=== PATIENT | female | born 1970 | race African-American/Black ===

== ENCOUNTER 2020-06-29 07:51 | Day surgery (SDC) | payer SELFPAY ==
[2020-06-29] MEDS ORDERED: propofoL 200 MG/20 ML VIAL IV ONE ×3 (08:24→09:44)
[2020-06-29] MEDS ORDERED: FENTANYL CITR 100 MCG/2 ML ONE ×2 (08:24→09:44)
[2020-06-29] MEDS ORDERED: MIDAZOLAM HCL 2 MG/2 ML INJ ONE ×2 (08:24→09:44)
[2020-06-29] MEDS ORDERED: dexAMETHasone 10 MG/ML VIAL ONE (08:25)
[2020-06-29] MEDS ORDERED: ONDANSETRON 4 MG/2 ML VIAL ONE (08:25)
[2020-06-29] MEDS ORDERED: LIDOCAINE 2% MPF 5 ML VIAL ONE (08:25)
[2020-06-29] MEDS ORDERED: KETOROLAC 30 MG/ML INJ ONE ×2 (08:26→09:55)
[2020-06-29] MEDS ORDERED: Ringers Lactate 1,000 ML IV ONE (08:40)
[2020-06-29] MEDS ORDERED: CEFAZOLIN/SWI 1gm 1 GM/10 ML SYR ONE (08:40)
[2020-06-29] MEDS ORDERED: ACETAMINOPHEN 325 MG TABLET ONE (08:59)
[2020-06-29] MEDS: BUPIVACAINE 0.5% PF 10 ML VIAL ONE ×2 (09:21→09:29)
[2020-06-29] MEDS: LIDOCAINE 1% W/EPI 1:100,000 MDV 50 ML VIAL ONE ×2 (09:30→09:48)
[2020-06-29] MEDS ORDERED: Mastisol Adhesive Liq ONE (09:57)
[2020-06-29 10:02] VITALS: O2SAT 100
--- NOTE | 2020-06-29 10:42 | OP ---
Surgeon: Beto Victoria MD Preoperative Diagnosis: Lipoma of the left wrist. Postoperative Diagnosis: Lipoma of the left wrist. Procedure Performed: Excision of lipoma, surgical dressing. Anesthesia: Local followed by general sedation. Operative Note: The patient was placed supine on operating table. 0.5% Marcaine was used to infiltr ate lipoma of the left wrist and forearm area on the radial side. The area was prepped with Betadine scrub and paint. Dry sterile drapes were applied in usual manner. The arm was elevated, exsanguina nano with an Esmarch. Tourniquet inflated to 250 mmHg. Wrist was placed on the Roto Lock table. Ell iptical incision was made. The patient experienced pain and wanted general anesthesia for that reaso n. General anesthesia was induced and then we proceeded. The radial nerve was identified and retrac nano out of the field. Dissection proceeded down to the extensors of the thumb. The lipoma was ident ified in the deep tissue and it was excised in toto. Then, the tourniquet was released. Electrocaut ginette was used for hemostasis. Wound was closed with 4-0 Vicryl subcu, 4-0 PDS running subcuticular fo llowed by tincture of benzoin, Steri-Strips, 4 x 4, and 2 inch Lexus. The patient tolerated procedur e well and returned to recovery. GARLAND/JOSESITO Voice ID: [id number] Report ID: [id number]
[2020-06-29] MEDS ORDERED: CODEINE 30MG/APAP 300MG TAB ONE (10:57)
[2020-06-29 12:08] VITALS: BP 111/57; TEMP 98
== END 2020-06-29 11:20 | disposition home or self-care (01) ==
LOC: OR 07:51
PROVIDERS: ATTEND Specialist
PROC: 0JBK0ZZ Excision of Left Hand Subcutaneous Tissue and Fascia, Open Approach (ICD-10-PCS; principal; 2020-06-29 09:00)
DX: D17.22 Benign lipomatous neoplasm of skin and subcutaneous tissue of left arm (principal)
CPT/HCPCS: 88304; 88305; J0690; J1100; J2250; J2405; J2704; J3010; J7120